=== PATIENT | female | born 1985 | race Caucasian/White ===

== ENCOUNTER → 2020-11-20 10:49 | Outpatient (CLI) | payer OTHER, SELFPAY ==
[2020-11-20 11:43] LABS: Add Manual Diff / Slide Review NO; Basophils Absolute Auto 100 /uL (0-100); Basophils Percent Auto 1.2 % (0-2); Eosinophils Absolute Auto 200 /uL (0-450); Hematocrit 39.4 % (36-46); Hemoglobin 13.1 g/dL (12.0-16.0); Lymphocytes Absolute Auto 1800 /uL (1100-4500); Lymphocytes Percent Auto 24.2 % (25-40); Mean Corpuscular HGB Conc 33.3 % (30-36); Mean Corpuscular Hemoglobin 31.2 PG (26-34); Mean Corpuscular Volume 93.6 fL (80-100); Monocytes Absolute Auto 700 /uL (0-900); Monocytes Percent Auto 9.5 % (3-14); Neutrophils Absolute Auto 4600 /uL (1500-7000); Neutrophils Percent Auto 62.1 % (50-75); Platelet Count 320 X10^3/uL (150-400); Red Blood Cell Count 4.21 X10^6/uL (4.0-5.2); Red Cell Distribution Width 12.5 % (11.6-14.8); White Blood Cell Count 7.4 X10^3/uL (4.5-11.0)
[2020-11-20 11:58] LABS: Alanine Aminotransferase 18 IU/L (<35); Albumin 4.4 g/dL (3.5-5.0); Albumin Globulin Ratio 1.6 (1.0-2.8); Alkaline Phosphatase 47 U/L (38-126); Aspartate Aminotransferase 23 IU/L (14-36); Bilirubin Total 0.3 mg/dL (0.2-1.3); Blood Urea Nitrogen 12 mg/dL (7-17); Calcium 9.6 mg/dL (8.4-10.2); Carbon Dioxide 29 mmol/L (22-32); Chloride 102 mmol/L (98-107); Estimated Glomerular Filt Rate > 60.0 mL/min (>60); Globulin 2.8 g/dL (1.7-4.1); Glucose 87 mg/dL (70-100); HEMOLYSIS < 15 (0-50); Potassium 4.1 mmol/L (3.4-5.1); Sodium 136 mmol/L (137-145); Total Protein 7.2 g/dL (6.3-8.2)
[2020-11-20 12:56] LABS: Thyroid Stimulating Hormone 3.46 uIU/mL (0.47-4.68)
[2020-11-23 11:49] LABS: Almond IgE <0.10 kU/L (Class 0); Cashew Nut IgE <0.10 kU/L (Class 0); Codfish Allergy IgE < 0.10 kU/L (Class 0); Egg White IgE <0.10 kU/L (Class 0); Hazelnut IgE <0.10 kU/L (Class 0); Milk IgE <0.10 kU/L (Class 0); Peanut IgE <0.10 kU/L (Class 0); Salmon Allergy IgE < 0.10 kU/L (Class 0); Scallop Allergy IgE < 0.10 kU/L (Class 0); Sesame seed Allergy IgE < 0.10 kU/L (Class 0); Shrimp IgE <0.10 kU/L (Class 0); Soybean IgE <0.10 kU/L (Class 0); Tuna Allergy IgE < 0.10 kU/L (Class 0); Walnut IgE <0.10 kU/L (Class 0); Wheat Allergy IgE < 0.10 kU/L (Class 0)
== END ==
PROVIDERS: PCP Registered Nurse; Referring Provider Registered Nurse; Visit Provider Registered Nurse
DX: F41.8 Other specified anxiety disorders (principal); R14.0 Abdominal distension (gaseous); E06.3 Autoimmune thyroiditis
CPT/HCPCS: 36415; 80053; 84443; 85025; 86003

== ENCOUNTER → 2021-01-18 12:06 | Outpatient (CLI) | payer OTHER, SELFPAY ==
--- NOTE | 2021-01-18 | DI.MRI.S_ITS ---
PROCEDURE: MR HEAD/BRAIN WO CON INDICATIONS: CHRONIC MIGRAINES TECHNIQUE: Noncontrast axial T1 spin echo, axial T2 fast spin echo, sagittal and axial FLAIR, coronal T2 fast spin echo, axial gradient echo, axial diffusion and ADC through the brain. COMPARISON: None. FINDINGS: Image quality: Excellent. CSF Spaces: Basal cisterns are patent. No extra-axial fluid collections. Ventricles are normal in size and shape. Brain: No intracranial masses or hemorrhage. Ov/white matter interface is normal. Brainstem appears normal. Diffusion-weighted images demonstrate no acute ischemic insult. No chronic ischemic insults. Normal intravascular flow voids are present. Skull and face: Calvarium has normal marrow signal. Orbits appear normal. Sinuses: Sinuses and mastoids are clear. IMPRESSION: Unremarkable intracranial study, without an imaging explanation found for the patient's presenting history of headache. No masses or mass effect. No hydrocephalus or brain edema. Dictated by: Tacho Paris M.D. on 01/18/2021 at 11:49 Approved by: Tacho Paris M.D. on 01/18/2021 at 11:50
== END ==
PROVIDERS: PCP Registered Nurse; Referring Provider Registered Nurse; Visit Provider Registered Nurse
DX: G43.709 Chronic migraine without aura, not intractable, without status migrainosus (principal)
CPT/HCPCS: 70551

== ENCOUNTER → 2021-02-15 14:44 | Outpatient (CLI) | payer OTHER, SELFPAY ==
--- NOTE | 2021-02-15 14:44 | DI.US.S_ITS ---
PROCEDURE: US THYROID INDICATIONS: FULLNESS IN LEFT THYROID GLAND TECHNIQUE: Real-time scanning was performed of the thyroid gland, with image documentation. COMPARISON: None. FINDINGS: Right: Thyroid lobe measures 4.8 x 1.7 x 1.5 cm, and is heterogeneous in echotexture. Left: Thyroid lobe measures 4.9 x 1.6 x 1.6 cm, and is heterogeneous in echotexture. Isthmus: 4 mm thick. No discrete thyroid nodule is identified. IMPRESSION: Enlarged thyroid gland with heterogeneous thyroid parenchymal echotexture. No discrete thyroid nodule is seen. ACR TI-RADS definitions and recommendations: TI-RADS 1 (benign): 0 points. FNA not needed. TI-RADS 2 (not suspicious): 2 points. FNA not needed. TI-RADS 3 (mildly suspicious): 3 points. * FNA if 2.5 cm or larger, follow up if 1.5 cm or larger (at 1, 3, and 5 years). TI-RADS 4 (moderately suspicious): 4-6 points. * FNA if 1.5 cm or larger, follow up if 1 cm or larger (at 1, 2, 3, and 5 years). TI-RADS 5 (highly suspicious): 7 points or more. * FNA if 1 cm or larger, follow up if 0.5 cm or larger (every year for 5 years). Dictated by: Hector Wong M.D. on 02/15/2021 at 16:41 Approved by: Hector Wong M.D. on 02/15/2021 at 16:46
== END ==
PROVIDERS: PCP Family Medicine; Referring Provider Family Medicine; Visit Provider Family Medicine
DX: E04.9 Nontoxic goiter, unspecified (principal); E07.89 Other specified disorders of thyroid; E06.3 Autoimmune thyroiditis; R07.89 Other chest pain; Z86.39 Personal history of other endocrine, nutritional and metabolic disease
CPT/HCPCS: 76536

== ENCOUNTER → 2021-02-25 13:47 | Outpatient (CLI) | payer OTHER, SELFPAY ==
[2021-02-25 14:51] LABS: Add Manual Diff / Slide Review NO; Basophils Absolute Auto 100 /uL (0-100); Basophils Percent Auto 0.9 % (0-2); Eosinophils Absolute Auto 300 /uL (0-450); Eosinophils Percent Auto 4.1 % (2-4); Hematocrit 36.3 % (36-46); Hemoglobin 12.4 g/dL (12.0-16.0); Lymphocytes Absolute Auto 1700 /uL (1100-4500); Lymphocytes Percent Auto 21.2 % (25-40); Mean Corpuscular HGB Conc 34.3 % (30-36); Mean Corpuscular Hemoglobin 31.6 PG (26-34); Mean Corpuscular Volume 92.2 fL (80-100); Monocytes Absolute Auto 600 /uL (0-900); Monocytes Percent Auto 7.5 % (3-14); Neutrophils Absolute Auto 5400 /uL (1500-7000); Neutrophils Percent Auto 66.3 % (50-75); Platelet Count 356 X10^3/uL (150-400); Red Blood Cell Count 3.93 X10^6/uL (4.0-5.2); Red Cell Distribution Width 11.9 % (11.6-14.8); White Blood Cell Count 8.1 X10^3/uL (4.5-11.0)
[2021-02-25 15:13] LABS: Alanine Aminotransferase 14 IU/L (<35); Albumin 4.2 g/dL (3.5-5.0); Albumin Globulin Ratio 1.8 (1.0-2.8); Alkaline Phosphatase 57 U/L (38-126); Aspartate Aminotransferase 21 IU/L (14-36); BUN Creatinine Ratio 21.1 (6-22); Bilirubin Total 0.2 mg/dL (0.2-1.3); Blood Urea Nitrogen 16 mg/dL (7-17); Calcium 9.3 mg/dL (8.4-10.2); Carbon Dioxide 29 mmol/L (22-32); Chloride 101 mmol/L (98-107); Estimated Glomerular Filt Rate > 60.0 mL/min (>60); Globulin 2.3 g/dL (1.7-4.1); Glucose 86 mg/dL (70-100); HEMOLYSIS < 15 (0-50); Potassium 4.1 mmol/L (3.4-5.1); Sodium 137 mmol/L (137-145); Total Protein 6.5 g/dL (6.3-8.2)
== END ==
PROVIDERS: PCP Family Medicine; Referring Provider Family Medicine; Visit Provider Family Medicine
DX: G44.51 Hemicrania continua (principal); T39.395A Adverse effect of other nonsteroidal anti-inflammatory drugs [NSAID], initial encounter
CPT/HCPCS: 36415; 80053; 85025

== ENCOUNTER 2021-07-17 11:07 | Emergency (ER) | payer OTHER, SELFPAY ==
[2021-07-17] VITALS (22 sets, daily range): BP systolic 93–143; BP diastolic 50–74; PULSE 48–70; RESP 14–25; TEMP 36.8; O2SAT 93–100; BMI 23.9
--- NOTE | 2021-07-17 11:49 | ED_ITS ---
HPI - Headache General Chief Complaint: Headache Stated Complaint: sharp intense pain in left eye/ear, from disorder Time Seen by Provider: 07/17/21 11:44 Mode of arrival: Ambulatory History of Present Illness HPI Narrative: The patient developed a left parietal headache about 4:00 a.m. yesterday, the pain is persisted. 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 She also has hypothyroidism a nd anxiety/depression. The Neurontin has been very helpful with the headaches once the diagnosis was made. She also uses a vagus nerve stimulator, which generally helps. The headache is persisting this time. She last used the stimulator about 1 hour prior to arrival. She has a left-sided headache, along with photophobia. She has no visual field cuts. She has no ENT complaints. She has no fever. She has no neck pain. She has no chest pain, cough or dyspnea. She previously had mild nausea, the seems to have resolved. She has no GI complaints now. She has no peripheral numbness or weakness. Related Data Home Medications Medication Instructions Recorded Confirmed sertraline 100 mg tablet (Zoloft) 100 mg PO DAILY 11/20/20 04/02/21 thyroid (pork) 30 mg tablet 45 mg PO DAILY tab 01/31/21 04/02/21 ([place] Thyroid) gabapentin 300 mg capsule 300 mg PO TID 04/02/21 04/02/21 Previous Rx's Medication Instructions Recorded bupropion HCl 75 mg tablet 75 mg PO DAILY #90 tab 02/05/21 Allergies Allergy/AdvReac Type Severity Reaction Status Date / Time penicillin G AdvReac Severe Hives Verified 11/20/20 10:13 [id number] Antimigraine AdvReac Unknown Verified 11/20/20 10:13 Agents Review of Systems Review of Systems Narrative: See HPI Patient History Medical History Abdominal bloating Hemicrania continua Social History Smoking Status: Never smoker Smoking Status: Never smoker Substance Use Type: marijuana Exam Initial Vital Signs Initial Vital Signs: Vital Signs Blood Pressure 143/65 H 07/17/21 11:14 Const General: cooperative and healthy appearing Other: Significant photophobia HENMT Head: normocephalic Face and sinus: normal facial exam and sinuses nontender Mouth: oral mucosae normal Throat: posterior oropharynx normal Eyes General: appearance normal, both eyes and all related structures Pupils: PERRL EOM: EOM intact bilaterally Neck Neck: normal visual inspection and full ROM Chest Chest: normal inspection of the chest Resp Effort & Inspection: normal respiratory effort Auscultation: clear to auscultation bilaterally Cardio Rate: regular rate Rhythm: regular rhythm Heart Sounds: S1 normal, S2 normal, no gallops, no murmurs and no rubs GI Inspection: normal to inspection Auscultation: normal bowel sounds Rectal Exam: visual inspection normal Back/Spine/Pelvis Back: No back tenderness Skin General: no rashes or lesions noted Neuro General: patient alert, patient awake, patient oriented x3 and no focal motor deficits Extrem General: normal to inspection Psych Mental Status: mental status grossly normal Course Course Course Narrative: The headache has improved significantly with Toradol, Reglan Benadryl. She still has notable left periorbital pain. Dilaudid was given. She is feeling much better discharge. Orders Ordered: ED Orders 07/17/21 11:25 Urine Microscopic Stat Discontinued Medications Diphenhydramine HCl (Diphenhydramine 50 Mg/Ml Vial) 25 mg IV NOW ONE Stop: 07/17/21 11:56 Last Admin: 07/17/21 12:11 Dose: 25 mg Documented by: [email or web address] Hydromorphone HCl (Hydromorphone 1 Mg Inj) 1 mg IV NOW ONE Stop: 07/17/21 13:52 Last Admin: 07/17/21 14:07 Dose: 1 mg Documented by: [email or web address] Sodium Chloride (Normal Saline 0.9%) 1,000 mls @ 1,000 mls/hr IV BOLUS ONE Stop: 07/17/21 12:54 Last Infusion: 07/17/21 13:34 Dose: 0 mls/hr Documented by: Admin: 07/17/21 12:12 Dose: 1,000 mls/hr Documented by: [email or web address] Ketorolac Tromethamine (Ketorolac 30 Mg/Ml Vial) 30 mg IV NOW ONE Stop: 07/17/21 11:56 Last Admin: 07/17/21 12:10 Dose: 30 mg Documented by: JN Metoclopramide HCl (Metoclopramide 10 Mg/2 Ml Inj) 10 mg IV NOW ONE Stop: 07/17/21 11:56 Last Admin: 07/17/21 12:11 Dose: 10 mg Documented by: JN Vital Signs Vital signs: Vital Signs - 8 hr 07/17/21 11:14 07/17/21 11:15 07/17/21 11:16 Temperature Pulse Rate 62 61 Respiratory Rate Blood Pressure 143/65 H 133/74 Pulse Oximetry 99 100 07/17/21 11:18 07/17/21 11:32 07/17/21 12:00 Temperature 98.3 F Pulse Rate 61 58 L 54 L Respiratory Rate 18 19 Blood Pressure 143/65 H Pulse Oximetry 100 98 95 07/17/21 12:16 07/17/21 12:30 07/17/21 13:00 Temperature Pulse Rate 52 L 55 L 63 Respiratory Rate 14 15 15 Blood Pressure 110/58 L 107/63 93/55 L Pulse Oximetry 97 99 97 07/17/21 13:30 07/17/21 14:00 07/17/21 14:01 Temperature Pulse Rate 51 L 70 63 Respiratory Rate 14 16 16 Blood Pressure 113/57 L 108/71 Pulse Oximetry 98 98 98 07/17/21 14:05 07/17/21 14:10 07/17/21 14:15 Temperature Pulse Rate 68 68 49 L Respiratory Rate 20 16 14 Blood Pressure Pulse Oximetry 97 99 96 07/17/21 14:20 07/17/21 14:25 07/17/21 14:30 Temperature Pulse Rate 51 L 48 L 50 L Respiratory Rate 25 H 24 Blood Pressure 95/50 L Pulse Oximetry 94 94 93 07/17/21 14:35 07/17/21 14:40 07/17/21 14:45 Temperature Pulse Rate 52 L 49 L 49 L Respiratory Rate 25 H 23 19 Blood Pressure 107/55 L 106/54 L Pulse Oximetry 93 95 93 07/17/21 14:50 Temperature Pulse Rate 51 L Respiratory Rate 19 Blood Pressure 99/53 L Pulse Oximetry 94 MDM - Headache Lab Data Labs: Lab Results 07/17/21 Range/Units 11:25 Urine RBC None seen (0-5/HPF) Urine WBC None seen (0-5/HPF) Ur Squamous Epith Cells 5-10 /hpf H (0-5/HPF) Urine Bacteria Few (2-10) H (None) Ur Culture Indicated? Cult not indicated Point of Care Testing Test Results Negative Urine Dip Bedside Urine Glucose Negative Bedside Urine Bilirubin - Negative Bedside Urine Ketone - Negative Urine Specific [place] 1.010 Bedside Urine Occult Blood - Negative Bedside Urine pH 7.5 Bedside Urine Protein - Negative Bedside Urine Urobilinogen - Negative Bedside Urine Nitrite - Negative Bedside Urine Leukocytes +++ 500 Esterase Discharge Plan Departure Patient Disposition: Home Clinical Impression: Hemicrania continua Instructions: DI for Headache Activity Restrictions/Additional Instructions: Continue current medications. Follow up with your neurologist for ongoing management. Return as needed. Prescriptions: No Action bupropion HCl 75 mg tablet 75 mg PO DAILY Qty: 90 1RF sertraline [Zoloft] 100 mg tablet 100 mg PO DAILY 0RF thyroid (pork) [[place] Thyroid] 30 mg tablet 45 mg PO DAILY 0RF gabapentin 300 mg capsule 300 mg PO TID 0RF Referrals: Christiano Singletary MD [Primary Care Provider] -
[2021-07-17 11:51] LABS: Bacteria Urine Few (2-10); Culture Indicated Urine Cult Not Indicated; RBC Urine None Seen (0-5/HPF); Squamous Epithelial Cell Urine 5-10 /HPF (0-5/HPF); WBC Urine None Seen (0-5/HPF)
[2021-07-17] MEDS: KETOROLAC 30 MG/ML VIAL IV (12:10)
[2021-07-17] MEDS: diphenhydrAMINE 50 MG/ML VIAL 25 MG IV (12:11)
[2021-07-17] MEDS: METOCLOPRAMIDE 10 MG/2 ML INJ IV (12:11)
[2021-07-17] MEDS: SODIUM CHLORIDE 0.9% 1,000 ML 1000 ML IV (12:12)
[2021-07-17] MEDS: HYDROMORPHONE 1 MG INJ IV (14:07)
== END 2021-07-17 15:34 | disposition home or self-care (01) ==
PROVIDERS: Emergency Provider Emergency Medicine; PCP Family Medicine
DX: G44.51 Hemicrania continua (principal)
CPT/HCPCS: 36415; 81003; 81015; 81025; 96374; 96375; 99284; J1170; J1200; J1885; J2765

== ENCOUNTER 2022-02-06 08:44 | Emergency (ER) | payer OTHER, SELFPAY ==
[2022-02-06] VITALS (8 sets, daily range): BP systolic 98–140; BP diastolic 51–72; PULSE 55–72; RESP 18–23; TEMP 36.7; O2SAT 96–98; BMI 23.9
--- NOTE | 2022-02-06 09:20 | ED_ITS ---
HPI - Headache General Chief Complaint: Headache Stated Complaint: same migraine since Thursday Time Seen by Provider: 02/06/22 09:19 Mode of arrival: Family Vehicle Limitations: no limitations History of Present Illness HPI Narrative: This is a 36 year old female with history of hemicrania continua, Abdoul's and anxiety. Patient states she is been having persistent headache for the last 4 days it is typically on the left side starting to track over the right she states when that happens typically she comes in because she knows she can not control them at home. She has a external nerve stimulator that she uses which is usually helpful. She is on gabapentin daily. She has not taken any other medications at home for her migraine/headache. She denies fevers or chills no vision changes, some occasionally tingling in the left cheek which she states has happened in the past. No new numbness, tingling or weakness otherwise, no difficulty with gait. No dizziness or vertigo. She does note some tinnitus. Patient denies any vomiting but has had nausea. No diarrhea constipation, no cold cough or congestion. No chest pain or shortness of breath. Patient was seeing a headache specialist who retired in November she is currently seeking a new neurologist. She states she is allergic to penicillin and triptans. She has had an appendectomy. Related Data Previous Rx's Medication Instructions Recorded bupropion HCl 75 mg tablet 75 mg PO DAILY #90 tabs 12/19/21 gabapentin 300 mg capsule 300 mg PO TID #240 caps 12/19/21 thyroid (pork) 30 mg tablet 45 mg PO DAILY #180 tabs 12/20/21 ([place] Thyroid) sertraline 100 mg tablet (Zoloft) 200 mg PO DAILY #180 tabs 02/05/22 Allergies Allergy/AdvReac Type Severity Reaction Status Date / Time penicillin G AdvReac Severe Hives Verified 02/06/22 09:12 [id number] Antimigraine AdvReac Unknown Verified 02/06/22 09:12 Agents Review of Systems Review of Systems ROS Unobtainable: All systems reviewed & are unremarkable except as noted in HPI and below Patient History Medical History Abdominal bloating Hemicrania continua Social History Smoking Status: Never smoker Smoking Status: Never smoker alcohol intake frequency: a few times a month Substance Use Type: marijuana Exam Narrative Exam Narrative: GEN: well nourished, well appearing female, alert and oriented x 3, patient appears to be in mild distress. HEENT: Atraumatic, pupils are equal round reactive to light, mild photophobia, extraocular movements are intact, nares are clear, TMs are clear with no fluid, there is no conjunctival pallor. Throat is clear without any exudates, erythema, tonsillar enlargement or uvular deviation HEART: Regular rate and rhythm without murmur, clicks, rubs. LUNGS:Lungs clear to auscultation, no wheezes, rales, crackles, chest moves symmetrically ABD:bowel sounds normal, soft, non-tender, no guarding, rebound, rigidity, no masses noted, no hepatosplenomegaly :No CVA tenderness MSCL: Non-tender, no muscle atrophy, muscles strength 5/5 upper and lower extremities, full range of motion, normal gait NEURO:CN 2-12 intact, sensation normal, reflexes 2/4 upper and lower extremities. finger nose finger test normal, heel guzmán test normal SKIN: No rash, erythema or other skin changes Initial Vital Signs Initial Vital Signs: Vital Signs Pulse Rate 72 02/06/22 08:53 Pulse Oximetry 98 02/06/22 08:53 Scores GCS [place] coma scale eye opening: Spontaneous [place] coma scale verbal response: Orientated [place] coma scale motor response: Obey commands Jose coma scale total score: 15 Course Orders Ordered: Discontinued Medications Dexamethasone (Dexamethasone 10 Mg/Ml Vial) 10 mg IV NOW ONE Stop: 02/06/22 09:31 Last Admin: 02/06/22 09:45 Dose: 10 mg Documented By: MUSTAPHA Sodium Chloride (Normal Saline 0.9%) 1,000 mls @ 1,000 mls/hr IV BOLUS ONE Stop: 02/06/22 10:12 Last Infusion: 02/06/22 10:32 Dose: 0 mls/hr Documented By: Admin: 02/06/22 09:44 Dose: 1,000 mls/hr Documented By: MUSTAPHA Sodium Chloride (Normal Saline 0.9%) 1,000 mls @ 1,000 mls/hr IV BOLUS ONE Stop: 02/06/22 10:29 Last Infusion: 02/06/22 11:40 Dose: 0 mls/hr Documented By: Admin: 02/06/22 10:32 Dose: 1,000 mls/hr Documented By: MUSTAPHA Ketorolac Tromethamine (Ketorolac 30 Mg/Ml Vial) 15 mg IV NOW ONE Stop: 02/06/22 09:31 Last Admin: 02/06/22 09:51 Dose: 15 mg Documented By: MUSTAPHA Metoclopramide HCl (Metoclopramide 10 Mg/2 Ml Inj) 10 mg IV NOW ONE Stop: 02/06/22 09:31 Last Admin: 02/06/22 09:51 Dose: 10 mg Documented By: MUSTAPHA Ondansetron HCl (Ondansetron 4 Mg/2 Ml Inj) 4 mg IV NOW ONE Stop: 02/06/22 09:14 Last Admin: 02/06/22 10:13 Dose: Not Given Documented By: MUSTAPHA Reevaluation(s) Reevaluation #1: Patient is feeling improved would like to finish her 2 L of fluids but states she feels much better and can return home. Time: 10:11 Vital Signs Vital signs: Vital Signs - 8 hr 02/06/22 09:00 02/06/22 08:53 02/06/22 09:00 Temperature 98.0 F Pulse Rate 70 72 Respiratory Rate 18 Blood Pressure 140/72 115/58 L Pulse Oximetry 98 98 Oxygen Delivery Method Room Air 02/06/22 09:00 02/06/22 09:30 02/06/22 09:30 Temperature Pulse Rate 62 67 Respiratory Rate 23 Blood Pressure 123/70 Pulse Oximetry 98 97 Oxygen Delivery Method 02/06/22 10:00 02/06/22 10:00 02/06/22 10:30 Temperature Pulse Rate 59 L 64 Respiratory Rate Blood Pressure 98/51 L Pulse Oximetry 97 98 Oxygen Delivery Method 02/06/22 10:31 02/06/22 10:31 02/06/22 11:00 Temperature Pulse Rate 64 55 L Respiratory Rate Blood Pressure 111/54 L Pulse Oximetry 98 96 Oxygen Delivery Method 02/06/22 11:30 Temperature Pulse Rate 69 Respiratory Rate Blood Pressure Pulse Oximetry 96 Oxygen Delivery Method MDM - Headache MDM Narrative Medical decision making narrative: This is a 28-year-old female with known migraines/hemicrania continua who has use her usual modalities at home without relief. She is not had any major changes to her typical pattern so head CT was deferred. Plan for fluids, Toradol and Reglan and will re-evaluate. No clear or obvious triggers for her recent symptoms. Patient's symptoms improved with Toradol, Reglan, dose of dexamethasone for intractable migraine and fluids. Return precautions. Discharge Plan Departure Patient Disposition: Home Clinical Impression: Hemicrania continua Instructions: DI for Migraine Activity Restrictions/Additional Instructions: Please follow-up with Neurology. Closest local option would be [facility]. Referral is included below. Please return for fevers, rapidly worsening headaches, sudden vision changes new numbness, tingling weakness, persistent vomiting, passing out, new chest pain or shortness of breath or other new or concerning changes. Prescriptions: No Action bupropion HCl 75 mg tablet 75 mg PO DAILY Qty: 90 3RF gabapentin 300 mg capsule 300 mg PO TID Qty: 240 3RF thyroid (pork) [[place] Thyroid] 30 mg tablet 45 mg PO DAILY Qty: 180 3RF Rx Instructions: take 1 and 1/2 tab by mouth daily for 45 mg sertraline [Zoloft] 100 mg tablet 200 mg PO DAILY Qty: 180 0RF Referrals: Christiano Singletary MD [Primary Care Provider] - Delta Calderon MD [Non-Staff] - Visit Report Forms: Patient Portal/API
[2022-02-06] MEDS: SODIUM CHLORIDE 0.9% 1,000 ML 1000 ML IV ×2 (09:44→10:32)
[2022-02-06] MEDS: DEXAMETHASONE 10 MG/ML VIAL IV (09:45)
[2022-02-06] MEDS: METOCLOPRAMIDE 10 MG/2 ML INJ IV (09:51)
[2022-02-06] MEDS: KETOROLAC 30 MG/ML VIAL 15 MG IV (09:51)
== END 2022-02-06 11:51 | disposition home or self-care (01) ==
PROVIDERS: Emergency Provider Emergency Medicine; PCP Family Medicine
DX: G44.51 Hemicrania continua (principal); F41.8 Other specified anxiety disorders
CPT/HCPCS: 36415; 96361; 96374; 96375; 99284; J1100; J1885; J2765

== ENCOUNTER → 2022-04-23 06:45 | Outpatient (CLI) | payer OTHER, SELFPAY ==
--- NOTE | 2022-04-23 06:47 | DI.US.S_ITS ---
PROCEDURE: US PELVIC COMPLETE INDICATIONS: LEFT PELVIC PAIN TECHNIQUE: Real-time scanning was performed of the pelvic organs, with image documentation. Additional endovaginal scanning was necessary due to incomplete visualization of the adnexal and endometrial structures by transabdominal scanning. COMPARISON: None. FINDINGS: Uterus: Uterus is anteverted and normal in size at 9.0 x 4.2 x 5.3 cm. The myometrium is homogeneous. The endometrium measures 11 mm combined thickness. Ovaries: The right ovary measures 2.5 x 3.4 x 2.6 cm, with a calculated ovarian volume of 12 cc. The left ovary measures 2.4 x 2.6 x 1.0 cm, with a calculated ovarian volume of 3 cc. A 2.6 cm corpus luteum is present in the right ovary. Less than 12 follicles can be seen in each ovary. No adnexal masses are seen. Blood flow is visualized within both ovaries on Doppler images. Other: No pathologic free abdominal or pelvic fluid. IMPRESSION: Unremarkable sonographic appearance of the uterus and ovaries. No adnexal mass visualized. We strive to produce accurate, complete, and clear reports of imaging services. To assist us in improving patient care, this report was composed using standard report templates and voice recognition software. Therefore, it may contain abnormal punctuation, insertions and/or omissions. Occasional wrong-word or sound-alike substitutions may occur. Though we review the report and make efforts to correct it, we do recommend that the report be read carefully in proper context to recognize any text inaccuracies. Dictated by: Antonio Hewitt M.D. on 04/23/2022 at 8:43 Approved by: Antonio Hewitt M.D. on 04/23/2022 at 8:46
== END ==
PROVIDERS: PCP Family Medicine; Referring Provider Registered Nurse Diabetes Educator; Visit Provider Registered Nurse Diabetes Educator
DX: N93.9 Abnormal uterine and vaginal bleeding, unspecified (principal)
CPT/HCPCS: 76830; 76856; 93975

== ENCOUNTER 2022-05-17 11:20 | Emergency (ER) | payer OTHER, SELFPAY ==
[2022-05-17] VITALS (12 sets, daily range): BP systolic 103–136; BP diastolic 58–79; PULSE 60–79; RESP 16; TEMP 36; O2SAT 97–99; BMI 24.7
--- NOTE | 2022-05-17 12:00 | ED_ITS ---
HPI - Headache General Chief Complaint: Headache Stated Complaint: burning pain case neck down into fingers Time Seen by Provider: 05/17/22 12:00 History of Present Illness HPI Narrative: Patient is a 36-year-old female with history of hemicrania continua, Abdoul's and anxiety presenting today with 2 weeks of left arm sharp shooting pain burning sensation and shooting pain in her face as well. All on the left side. She initially went to a walk-in clinic heart was muscle spasm she was given muscle relaxer and Toradol which she said helped initially. However it does continue. She is already taking gabapentin 600 mg 3 times daily. She previously had a neurologist for the headaches in [place] however he retired. He denies any worsening headache no nausea or vomiting no fevers. She denies any injury. She says that pain sometimes goes into her jaw. No visual changes. Related Data Home Medications Medication Instructions Recorded Confirmed thyroid (pork) 60 mg tablet 60 mg PO 04/22/22 05/07/22 ([place] [facility]) Previous Rx's Medication Instructions Recorded bupropion HCl 75 mg tablet 75 mg PO DAILY #90 tabs 12/19/21 sertraline 100 mg tablet (Zoloft) 150 mg PO DAILY #135 tabs 02/10/22 methocarbamol 500 mg tablet 500 mg PO TID PRN muscle pain #20 05/07/22 tabs gabapentin 600 mg tablet 600 mg PO BID PRN pain (scale 05/08/22 score 4-6) #90 tabs methocarbamol 750 mg tablet 750 mg PO Q8H PRN muscle spasm #20 05/17/22 tabs Allergies Allergy/AdvReac Type Severity Reaction Status Date / Time penicillin G AdvReac Severe Hives Verified 05/07/22 10:12 [id number] Antimigraine AdvReac Unknown Verified 05/07/22 10:12 Agents Review of Systems Review of Systems ROS Unobtainable: All systems reviewed & are unremarkable except as noted in HPI and below Patient History Medical History Abdominal bloating Hemicrania continua Social History Smoking Status: Never smoker Smoking Status: Never smoker alcohol intake frequency: a few times a month Substance Use Type: marijuana Exam Initial Vital Signs Initial Vital Signs: Vital Signs Temperature 96.8 F L 05/17/22 11:27 Pulse Rate 79 05/17/22 11:27 Respiratory Rate 16 05/17/22 11:27 Blood Pressure 136/79 05/17/22 11:27 Pulse Oximetry 97 05/17/22 11:27 Oxygen Delivery Method 05/17/22 11:27 GENERAL: Alert pleasant 36-year-old female HEENT: Head atraumatic,EOMI, pupils reactive, face symmetric, moist mucous membranes NECK: No significant vertebral tenderness tender left paraspinal muscle CARDIOVASCULAR: Regular rate and rhythm without murmurs, rubs or gallops. RESPIRATORY: Breath sounds equal bilaterally, no wheezes rales or rhonchi. ABDOMEN: Soft, nontender. Normoactive bowel sounds all 4 quadrants. No guarding or rebound. EXTREMITIES: Normal range of motion, no clubbing or edema. Neurovascularly intact NEUROLOGICAL: Alert and oriented x4.Normal gait and speech. SKIN: Warm, dry, no laceration, no petechiae, no rashes or lesions. Course Orders Ordered: ED Orders 05/17/22 12:13 CT cervical spine wo con Stat Discontinued Medications Dexamethasone (Dexamethasone 10 Mg/Ml Vial) 10 mg IV NOW ONE Stop: 05/17/22 12:03 Last Admin: 05/17/22 12:20 Dose: 10 mg Documented By: CTS Diphenhydramine HCl (Diphenhydramine 50 Mg/Ml Vial) 25 mg IV NOW ONE Stop: 05/17/22 12:02 Last Admin: 05/17/22 12:21 Dose: Not Given Documented By: CTS Sodium Chloride (Normal Saline 0.9%) 1,000 mls @ 1,000 mls/hr IV BOLUS ONE Stop: 05/17/22 13:00 Last Admin: 05/17/22 12:22 Dose: Not Given Documented By: CTS Ketorolac Tromethamine (Ketorolac 30 Mg/Ml Vial) 15 mg IV NOW ONE Stop: 05/17/22 12:02 Last Admin: 05/17/22 12:20 Dose: 15 mg Documented By: CTS Prochlorperazine (Prochlorperazine 10 Mg/2 Ml Vial) 10 mg IV NOW ONE Stop: 05/17/22 12:02 Last Admin: 02/18/23 12:21 Dose: Not Given Documented By: CTS Vital Signs Vital signs: Vital Signs - 8 hr 05/17/22 11:27 05/17/22 11:28 05/17/22 11:30 Temperature 96.8 F L Pulse Rate 79 70 70 Respiratory Rate 16 Blood Pressure 136/79 Pulse Oximetry 97 99 98 Oxygen Delivery Method Room Air 05/17/22 12:00 05/17/22 12:30 05/17/22 13:00 Temperature Pulse Rate 63 63 65 Respiratory Rate Blood Pressure Pulse Oximetry 98 98 98 Oxygen Delivery Method 05/17/22 13:08 05/17/22 13:08 05/17/22 13:30 Temperature Pulse Rate 64 60 Respiratory Rate Blood Pressure 123/61 Pulse Oximetry 98 98 Oxygen Delivery Method 05/17/22 13:42 05/17/22 13:42 05/17/22 13:53 Temperature Pulse Rate 72 Respiratory Rate Blood Pressure 111/58 L 103/64 Pulse Oximetry 98 Oxygen Delivery Method 05/17/22 13:53 05/17/22 13:59 05/17/22 13:59 Temperature Pulse Rate 69 65 Respiratory Rate Blood Pressure 113/69 Pulse Oximetry 98 98 Oxygen Delivery Method 05/17/22 14:00 05/17/22 14:00 Temperature Pulse Rate 63 Respiratory Rate Blood Pressure 111/73 Pulse Oximetry 98 Oxygen Delivery Method MDM - Headache Imaging Data CT - cervical spine: Radiologist's Impression: CT Scan Report Signed Patient: Navya Moe MR#: [id number] : 1985 Acct:[id number] Age/Sex: 36 / F Date of Service: 05/17/22 Loc: ED Accession Number: [id number] ?? Procedure: CT cervical spine wo con Ordering Provider: Chasity Salinas D.O. PROCEDURE:? CT CERVICAL SPINE WO CON ? INDICATIONS:? numbness weakness left arm ? TECHNIQUE:? Noncontrast 3 mm thick sections acquired from the skull base to the T4 level.? Sagittal and coronal reformats were then constructed.? For radiation dose reduction, the following was used:? automated exposure control, adjustment of mA and/or kV according to patient size.? ? COMPARISON:? None. ? FINDINGS:? Image quality:? Excellent.? ? Bones:? No fractures or dislocations.? Visualized superior ribs are intact.? ? There is overall straightening of the normal cervical lordosis. No focal AP alignment abnormality is seen.? At C6-C7, there is mild loss disc height seen. Posteriorly projected endplate osteophytes are seen at this level.? Milder degenerative changes are seen elsewhere.? ? Soft tissues:? Prevertebral soft tissues are normal in thickness.? No paravertebral hematomas.? No apical pneumothoraces.? ? ? IMPRESSION:? Focal C6-C7 degenerative change, with posteriorly directed endplate osteophytes. ? If it would be helpful for clinical management decision making, please consider a dedicated cervical spine MRI for further evaluation (assuming that there is no contraindication).? ? ? Dictated by: Tacho Paris M.D. on 05/17/2022 at 11:40 ? ? 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 Questionable spinal stenosis versus trigeminal neuralgia she will get some pain in her face and jaw as well. Already taking gabapentin 600 mg 2-3 times daily. She is not having any worsening or change in her migraine headache. CT does show focal C6- C7 degenerative change with posterior endplate osteophytes. There is no significant stenosis. She is actually able to move her neck more after Toradol. She reports that after taking methocarbamol it was getting better. It is slightly tender to touch I suspect more of a muscle spasm rather than trigeminal neuralgia. Although we did discuss this and at this time would like to start muscle relaxer methocarbamol again to see if it helps. She has appointment with neurology but not until September I do not think there is an emergent need to move that appointment up. Discharge Plan Departure Patient Disposition: Home Clinical Impression: Cervical paraspinal muscle spasm Instructions: DI for Muscle Spasm Activity Restrictions/Additional Instructions: *You have been diagnosed with muscle spasm *What to do: At this time increase activity as tolerated, heating pad massage *Continue to take medications as directed Methocarbamol 750 mg up to 3 times a day if needed for muscle spasm -> [facility] *Follow up with your primary care provider in 2-3 days or call [phone] *Return to ER if you should have increasing pain weakness or any new, worsening or concerning symptoms Prescriptions: New methocarbamol 750 mg tablet 750 mg PO Q8H PRN (Reason: muscle spasm) Qty: 20 0RF No Action methocarbamol 500 mg tablet 500 mg PO TID PRN (Reason: muscle pain) Qty: 20 0RF bupropion HCl 75 mg tablet 75 mg PO DAILY Qty: 90 3RF gabapentin 600 mg tablet 600 mg PO BID PRN (Reason: pain (scale score 4-6)) Qty: 90 0RF thyroid (pork) [[place] Thyroid] 60 mg tablet 60 mg PO sertraline [Zoloft] 100 mg tablet 150 mg PO DAILY Qty: 135 0RF Referrals: Christiano Singletary MD [Primary Care Provider] - Stand Alone Forms: Patient Portal/API
--- NOTE | 2022-05-17 12:13 | DI.CT.S_ITS ---
PROCEDURE: CT CERVICAL SPINE WO CON INDICATIONS: numbness weakness left arm TECHNIQUE: Noncontrast 3 mm thick sections acquired from the skull base to the T4 level. Sagittal and coronal reformats were then constructed. For radiation dose reduction, the following was used: automated exposure control, adjustment of mA and/or kV according to patient size. COMPARISON: None. FINDINGS: Image quality: Excellent. Bones: No fractures or dislocations. Visualized superior ribs are intact. There is overall straightening of the normal cervical lordosis. No focal AP alignment abnormality is seen. At C6-C7, there is mild loss disc height seen. Posteriorly projected endplate osteophytes are seen at this level. Milder degenerative changes are seen elsewhere. Soft tissues: Prevertebral soft tissues are normal in thickness. No paravertebral hematomas. No apical pneumothoraces. IMPRESSION: Focal C6-C7 degenerative change, with posteriorly directed endplate osteophytes. If it would be helpful for clinical management decision making, please consider a dedicated cervical spine MRI for further evaluation (assuming that there is no contraindication). Dictated by: Tacho Paris M.D. on 05/17/2022 at 11:40 Approved by: Tacho Paris M.D. on 05/17/2022 at 11:42
[2022-05-17] MEDS: KETOROLAC 30 MG/ML VIAL 15 MG IV (12:20)
[2022-05-17] MEDS: DEXAMETHASONE 10 MG/ML VIAL IV (12:20)
== END 2022-05-17 14:05 | disposition home or self-care (01) ==
PROVIDERS: Emergency Provider Emergency Medicine; PCP Family Medicine
DX: M62.838 Other muscle spasm (principal); M79.602 Pain in left arm
CPT/HCPCS: 36415; 72125; 96374; 96375; 99284; J1100; J1885

== ENCOUNTER 2022-08-15 07:56 | Day surgery (SDC) | payer OTHER, SELFPAY ==
[2022-08-12 14:52] VITALS: BMI 25.1
--- NOTE | 2022-08-15 | PATH_ITS ---
[facility] Accession Number: [id number] No. of containers..02 Tissue . 01 Material submitted: . PART A: cervix - RIGHT POSTERIOR CUL DE SAC PERITONEAL BIOPSY PART B: endometrium - ENDOMETRIAL CURETTINGS . 01 Diagnosis: A. Right Posterior Cul-de-sac, Biopsy: Mesothelial lined fibroadipose tissue with endometriosis. Negative for malignancy. . B. Endometrium, Curettage: Weakly proliferative endometrium with breakdown. Negative for atypical hyperplasia and malignancy. [facility] 08/20/2022 1546 Local . 01 Electronically signed: . Isabel Earl MD, Pathologist NPI- [id number] . 01 Gross description: . A. Received in formalin, labeled with the patient's name, , and R posterior cul-de-sac peritoneal bx, and consists of three irregular, yellow soft tissue fragments aggregating to 2.4 x 1.5 x 0.5 cm. One aspect of each fragment is differentially inked, and the fragments are bisected and submitted entirely in cassettes A1-A2. B. Received in formalin, labeled with the patient's name, , and endometrial curet, and consists of multiple red-brown to stiles soft tissue fragments admixed with hemorrhagic material aggregating to 4.5 x 3.1 x 0.3 cm. The specimen is filtered into a biopsy bag and submitted entirely in cassettes B1-B2. ([id number]) /FRJhoana 08/20/2022 0252 Local . 01 Pathologist provided ICD-10: N92.0 . 01 CPT . 472810, 441779 Specimen Comment: A courtesy copy of this report has been sent to [phone] Performed at: [address] [place] [address], [place], [place] [id number] MD Roberto Dudley MD Phone: [phone]
[2022-08-15 08:14] VITALS: BP 121/76; PULSE 67; RESP 18; TEMP 36.6; O2SAT 99; BMI 25.1
[2022-08-15] MEDS: LACTATED RINGERS 1,000 ML 120 ML IV ×3 (08:33→11:31)
--- NOTE | 2022-08-15 09:15 | PM.PREOP ---
Pre-operative Note COVID-19 COVID-19 status: Not tested Criteria for continued procedure: Non-surgical alternatives not available or appropriate per current SOC Interval Note History & Physical reviewed/Exam performed by Physician: Yes Changes to H&P: No
--- NOTE | 2022-08-15 10:37 | SUR.OPER ---
Lithotomy on padded OR bed, head on pillow, arms secured padded and tucked. Legs secured in padded yellow fins stirrups.
[2022-08-15] MEDS: BUPIVACAINE 0.5% (PF) 30 ML, EPINEPHrine 0.15 MG INJ (11:09)
--- NOTE | 2022-08-15 11:43 | PM.GYNOP.1 ---
Operative Date/Time/Diagnoses Date of procedure: 08/15/22 Time of procedure: 10:35 Pre-op diagnosis: Menorrhagia Pelvic pain Post-op diagnosis: other (Same as above; minimal pelvic endometriosis) Procedure & Clinicians Procedure: Procedures Operation Date: 08/15/22 09:15 Actual Procedure Side Surgeon p Hysteroscopy with D&C of uterus, endometrial ablation (novasure) Mac Burton MD s DX laparoscopy w/ fulguration and excision of endometrial implants Mac Burton MD Indications: Melba is a 36-year-old , LMP approximately 4 weeks ago who presents with a long history of heavy periods and more recent development of intermittent left sided pelvic pain.? Patient experienced menarche at age 13 and had regular but extremely heavy periods sometimes lasting up to 2 weeks throughout her reproductive life.? She was placed on control pills at age 16 which she continued intermittently through to pregnancies resulting in vaginal births and then for a year 2 after her youngest child was born.? Patient does not recall that the pills were of significant benefit insofar as lightening her periods.? Patient over the last 6-8 months however is noted that her periods while remaining regular have become even heavier with passage of clots, overflows, and accidents on occasion.? She denies intermenstrual bleeding but it has occasionally experienced postcoital bleeding.? Paps have always been normal throughout her life.? Contraception is by vasectomy.? Her last Pap smear was 5 years ago.? Over the last few months, the patient has begun having left-sided pelvic pain immediately prior to, during and occasionally for a few days after her menses.? These episodes do not occur with each period but rather seem to alternate.? Pain is described as dull with localized tenderness in the left lower quadrant.? She is not noticed any change in her bowel or bladder habits with these episodes.? The only relief she gets is with heat and or a bath as she gets GI upset with use of NSAIDs or Tylenol.? 2 weeks ago, while shopping she had the onset of a massive bleeding with blood running down her legs were advised she went to the emergency room an ultrasound showed she had an enlarged uterus at 10.2 cm IUD was present she had a midline fibroid of 5 x 4.7 x 3.9 cm FIGO 2-5.? Recent pelvic ultrasound performed on 04/23/2022 shows: FINDINGS:? ?? Uterus:? Uterus is anteverted and normal in size at 9.0 x 4.2 x 5.3 cm. The myometrium is homogeneous. ? The endometrium measures 11 mm combined thickness.? ? Ovaries:? The right ovary measures 2.5 x 3.4 x 2.6 cm, with a calculated ovarian volume of 12 cc. The left ovary measures 2.4 x 2.6 x 1.0 cm, with a calculated ovarian volume of 3 cc.? A 2.6 cm corpus luteum is present in the right ovary.? Less than 12 follicles can be seen in each ovary.? No adnexal masses are seen.? Blood flow is visualized within both ovaries on Doppler images. ? Other:? No pathologic free abdominal or pelvic fluid.? ? IMPRESSION:? Unremarkable sonographic appearance of the uterus and ovaries.? No adnexal mass visualized.? Endometrial biopsy performed in April 2022 showed only secretory endometrium with no other abnormalities.? After consideration of all options, the patient desires to proceed with diagnostic laparoscopy, possible excision/fulguration of peritoneal endometriosis, diagnostic hysteroscopy with possible biopsies, dilation and curettage of the uterus, and endometrial ablation (NovaSure).? Contraception is by vasectomy.? She presents today for preoperative evaluation, counseling, and consent. Surgeon: Mac Burton Anesthesia Type: General Operative Notes Findings: The uterus is normal in size and shape. The anterior cul-de-sac is free of any endometrial implants or other abnormalities. Both fallopian tubes and ovaries appear to be completely normal with no endometriotic implants on the surface of either ovary. Both ovarian fossae are free of any abnormalities. On the left side of the posterior cul-de-sac there were some superficial endometrial implants which were fulgurated and on the right side within the boundaries of the posterior cul-de-sac are 3 deep endometrial implants and a masters window all of which were excised during the course of her surgery. The appendix is surgically absent. Closure Type: primary Specimen(s): endometrial curettings and other (Peritoneal biopsies, right posterior cul-de-sac) Estimated blood loss (mL): 15 Blood products transfused: none Procedure in detail: With the patient under satisfactory general anesthesia in the modified dorsal lithotomy position, the perineum, vagina, and abdomen prepped and draped in usual manner for hysteroscopy/laparoscopy. A pre-surgical safety time-out was then taken in accordance with [facility] OR protocols. A bivalve speculum was then inserted in the vagina and the anterior lip of the cervix grasped with single-tooth tenaculum. The endocervical canal was then dilated to 8 mm with Hegar dilators and a Zumi manipulator was inserted in the uterine cavity. The inferior edge of the umbilicus with an infiltrated with 0.5% Marcaine with epinephrine and a 1 cm transverse incision of the inferior umbilical skin was made along the lines of her prior laparoscopy incision. A Veress needle was then used to insufflate the abdomen with carbon dioxide and once insufflated, a 5 mm trocar and sleeve was inserted through the umbilical incision. Proper placement was confirmed with the laparoscope and a 2nd and 3rd 5 mm port was inserted in the left and right mid quadrants using a similar technique. Using a 3 puncture technique the pelvis and abdomen were visualized and photographically documented. The areas of superficial endometriosis in the left side of the posterior cul-de-sac were then fulgurated with judicious use of monopolar current with complete destruction of those lesions. A [place] grasper was used to grasp the deep implants and they were excised using monopolar charles. All areas of endometriosis in the right posterior cul-de-sac including the masters window were excised and submitted as an aggregate specimen. Pelvis was irrigated thoroughly and inspected for any other abnormality or bleeding. There were no abnormalities and no bleeding noted even as intra-abdominal pressure was reduced and the laparoscopy was terminated by bending of the pneumoperitoneum and removal of the laparoscopy ports. Laparoscopy port incisions were all then closed with 4-0 Monocryl using inverted interrupted stitches. Skin glue was applied and appropriate dressings were applied. Attention was then turned to the hysteroscopy. The patient was repositioned appropriately and a bivalve speculum inserted in the vagina anterior lip of the cervix was again grasped and a hysteroscope was introduced into the endometrial cavity. The patient was actively menstruating therefore visualization of the endometrial cavity was somewhat limited but no abnormalities were noted. Sharp curettage was then accomplished with the endometrial curetting specimen submitted as a separate pathologic specimen. The NovaSure endometrial ablation device was then introduced into the endometrial cavity which was measured to be 6.5 cm plus in length with a width of 3.7 cm at the uppermost portion of the endometrial cavity. The NovaSure device was deployed and the ablation time was measured 56 seconds with a total of 132 w. The NovaSure device was then removed from the endometrial cavity and the hysteroscope introduced and the cavity photographically documented with excellent ablation effect noted. The hysteroscope was then removed from the endometrial cavity and an Allis clamp applied to 1 of the tenaculum puncture sites to render it completely hemostatic. Once hemostasis was assured the speculum was removed from the vagina and procedure terminated. The patient was then awakened and transferred to PACU for a period of observation and recovery having tolerated procedure well. Complications: none Post-operative Condition: stable Disposition: PACU Plan for aftercare: Routine postoperative care with follow-up planned for 2 weeks postop.
[2022-08-15 11:50] VITALS: BP 116/58; PULSE 79; RESP 16; TEMP 36.2; O2SAT 98
[2022-08-15 11:55] VITALS: BP 112/69; PULSE 76; RESP 16; O2SAT 98
[2022-08-15] MEDS: OXYCODONE/ACETAMINOPHEN 5/325 TABLET 1 TAB PO (11:57)
[2022-08-15] MEDS: ONDANSETRON 4 MG/2 ML INJ IV ×2 (11:58→12:23)
[2022-08-15 12:00] VITALS: BP 112/69; PULSE 71; RESP 16; TEMP 36.2; O2SAT 98
[2022-08-15 12:05] VITALS: BP 124/70; PULSE 73; RESP 16; TEMP 36.3; O2SAT 95
[2022-08-15 12:14] VITALS: BP 124/68; PULSE 73; RESP 16; TEMP 36.3; O2SAT 98
--- NOTE | 2022-08-15 12:28 | SUR.PHASEII ---
Patient still c/o nausea. Re-medicated with additional dose of Zofran. Additional IV fluids infusing for hydration . No other complaints at this time. All discharge instructions reviewed with patient. V/U.
[2022-08-15] MEDS: METOCLOPRAMIDE 10 MG/2 ML INJ IV (12:45)
== END 2022-08-15 13:32 | disposition home or self-care (01) ==
PROVIDERS: PCP Family Medicine; Referring Provider Obstetrics & Gynecology; Visit Provider Obstetrics & Gynecology
PROC: 0U5B8ZZ Destruction of Endometrium, Via Natural or Artificial Opening Endoscopic (ICD-10-PCS; CPT 58563; principal; 2022-08-15 09:15)
PROC: 0U5B4ZZ Destruction of Endometrium, Percutaneous Endoscopic Approach (ICD-10-PCS; CPT 58662; 2022-08-15 09:15)
DX: N92.0 Excessive and frequent menstruation with regular cycle (principal); N80.329 Endometriosis of the posterior cul-de-sac, unspecified depth
CPT/HCPCS: 58662; 58563; J0171; J1100; J1885; J2250; J2405; J2704; J2765; J3010

== ENCOUNTER → 2023-01-16 09:08 | Outpatient (CLI) | payer OTHER, SELFPAY ==
[2023-01-16 11:03] LABS: Free T4, Direct Thyroxine 0.76 ng/dL (0.78-2.19)
[2023-01-16 11:17] LABS: Thyroid Stimulating Hormone 1.68 uIU/mL (0.47-4.68)
== END ==
PROVIDERS: PCP Family Medicine; Referring Provider Family Medicine; Visit Provider Family Medicine
DX: E06.3 Autoimmune thyroiditis (principal); E03.9 Hypothyroidism, unspecified
CPT/HCPCS: 36415; 84439; 84443

== ENCOUNTER → 2023-02-23 07:55 | Outpatient (CLI) | payer OTHER, SELFPAY | PROVIDERS: PCP Family Medicine; Visit Provider Nurse Practitioner Family | DX: R30.0 Dysuria (principal) | CPT/HCPCS: 87086 ==

== ENCOUNTER → 2023-03-06 13:22 | Outpatient (CLI) | payer OTHER, SELFPAY ==
--- NOTE | 2023-03-06 13:23 | DI.MG.S_ITS ---
BILATERAL DIGITAL DIAGNOSTIC MAMMOGRAM 3D/2D: 03/06/2023 CLINICAL: Right breast non-focal intermittent pain, Baseline exam. Family history of breast cancer. No prior exams were available for comparison. Both breasts are heterogeneously dense, which may obscure small masses (category c / 51-75% glandular tissue). No significant masses, calcifications, or other findings are seen in either breast. Of note, patient did not have right breast pain at time of timing, therefore no additional mammographic views were acquired. IMPRESSION: NEGATIVE No mammographic evidence of malignancy. A 1 year screening mammogram is recommended. Diffuse, non-focal symptoms, such as pain or fullness are typically benign. Clinical follow-up is recommended, and further management of these symptoms should be based on the results of clinical evaluation. If diffuse symptoms persist or become more focal in nature, further clinical evaluation should be considered. Findings and recommendations were conveyed to the patient during today's evaluation. Based on Tyrer-Cuzick model (a risk assessment model), the patient's lifetime risk is 25.1% and her 10 year risk is 3.1%. If a patient has an elevated risk, a more comprehensive evaluation should be considered and/or a referral to a genetic counselor. The [place] [employer], [place] [employer], and NCCN Guidelines advise the consideration of Breast MRI as an adjunct to screening mammography in patients whose Lifetime risk to develop breast cancer is 20% or higher. This exam was interpreted at Station ID: [id number]. NOTE: For mammograms, a report in lay terms will be sent to the patient. Approximately 15% of breast malignancies will not be visualized mammographically. In the management of a palpable breast mass, a negative mammogram must not discourage biopsy of a clinically suspicious lesion. Electronically Signed By: Mary Choudhury M.D., PH.D eb/:03/06/2023 14:31:48 letter sent: Clinical Evaluation ACR BI-RADS Category 1: Negative [id number]
== END ==
PROVIDERS: PCP Family Medicine; Referring Provider Family Medicine; Visit Provider Family Medicine
DX: N64.4 Mastodynia (principal); Z80.3 Family history of malignant neoplasm of breast; Z15.01 Genetic susceptibility to malignant neoplasm of breast; Z15.02 Genetic susceptibility to malignant neoplasm of ovary; Z15.09 Genetic susceptibility to other malignant neoplasm; Z15.89 Genetic susceptibility to other disease
CPT/HCPCS: 77066; G0279

== ENCOUNTER → 2023-03-18 08:09 | Outpatient (CLI) | payer OTHER, SELFPAY ==
[2023-03-18 09:55] LABS: Alanine Aminotransferase 15 IU/L (<35); Albumin 4.3 g/dL (3.5-5.0); Albumin Globulin Ratio 1.5 (1.0-2.8); Alkaline Phosphatase 45 U/L (38-126); Aspartate Aminotransferase 20 IU/L (14-36); BUN Creatinine Ratio 16.7 (6-22); Bilirubin Total 0.5 mg/dL (0.2-1.3); Blood Urea Nitrogen 9 mg/dL (7-17); Calcium 8.9 mg/dL (8.4-10.2); Carbon Dioxide 28 mmol/L (22-32); Chloride 104 mmol/L (98-107); Cholesterol 259 mg/dL (140-199); Estimated Glomerular Filt Rate > 60 mL/min (>60); Globulin 2.9 g/dL (1.7-4.1); Glucose 87 mg/dL (70-100); HDL Cholesterol 54 mg/dL (40-60); HEMOLYSIS < 15 (0-50); LDL Cholesterol Calculated 180 mg/dL (<100); Potassium 3.7 mmol/L (3.4-5.1); Sodium 137 mmol/L (137-145); Total Protein 7.2 g/dL (6.3-8.2); Triglycerides 126 mg/dL (35-150)
[2023-03-18 10:21] LABS: Free T4, Direct Thyroxine 0.97 ng/dL (0.78-2.19)
[2023-03-18 10:35] LABS: TSH w/ Reflex to FT4 2.49 uIU/mL (0.47-4.68)
== END ==
PROVIDERS: PCP Family Medicine; Referring Provider Family Medicine; Visit Provider Family Medicine
DX: R10.2 Pelvic and perineal pain (principal); N80.9 Endometriosis, unspecified; E03.9 Hypothyroidism, unspecified; Z86.32 Personal history of gestational diabetes; Z15.01 Genetic susceptibility to malignant neoplasm of breast; Z15.02 Genetic susceptibility to malignant neoplasm of ovary; Z15.09 Genetic susceptibility to other malignant neoplasm; Z15.89 Genetic susceptibility to other disease
CPT/HCPCS: 36415; 80053; 80061; 83036; 84439; 84443